=== PATIENT | male | born 1975 | race Caucasian/White ===

== ENCOUNTER 2022-06-18 13:46 | Emergency (ER) | payer OTHER ==
[~2022-06-18] VITALS: Ht 175.3 cm; Wt 93.0 kg
[2022-06-18] MEDS ORDERED: COZAAR100 MG (14:52)
[2022-06-18] MEDS ORDERED: TOPROL XL50 M1 (14:53)
== END 2022-06-18 20:17 | disposition home or self-care (01) ==
LOC: ER 13:46
DX: N23 Unspecified renal colic (principal); M54.9 Dorsalgia, unspecified